=== PATIENT | female | born 1985 | race Caucasian/White ===

== ENCOUNTER 2022-04-10 14:25 | Outpatient (CLI) | payer MEDICARE, MEDICAID ==
[2022-04-10 15:01] LABS: Hemoglobin 14.2 g/dL (12.0-15.5); Mean Corpuscular HGB CONC 34.6 g/dL (32.0-36.0); Mean Corpuscular Hemoglobin 29.5 pg (27.0-33.0); Mean Corpuscular Volume 85.2 fl (81.6-98.3); Mean Platelet Volume 9.6 fl (7.4-10.4); Platelet Count 408 10x3/uL (150-450); RBC Distribution Width 12.3 % (11.5-14.5); Red Blood Cell (RBC) Count 4.81 10x6/uL (3.90-5.03); White Blood Cell (WBC) Count 8.2 10x3/uL (3.5-10.5)
[2022-04-10 15:15] LABS: BHCG - Serum Negative (NEGATIVE); Pregs Control Background? CLEAR/WHITE (CLR/WHITE); Pregs Control Bar Appear? YES (CONTROL BAR)
[2022-04-10 15:21] LABS: Anion Gap 15 mmol/L (10-20); BUN (Urea Nitrogen) 8 mg/dL (7.0-18.7); Calc. Creatinine Clearance 0 mL/min (70-130); Calcium 9.7 mg/dL (7.8-10.44); Carbon Dioxide 26 mmol/L (22-29); Chloride 103 mmol/L (98-107); Estimated GFR 109; Glucose 105 mg/dL (70-105); Potassium 3.8 mmol/L (3.5-5.1); Sodium 140 mmol/L (136-145)
== END 2022-04-10 14:26 | disposition home or self-care (01) ==
LOC: LABBT 14:25
PROVIDERS: ATTEND Orthopaedic Surgery
DX: Z01.812 Encounter for preprocedural laboratory examination (principal); S62.613A Displaced fracture of proximal phalanx of left middle finger, initial encounter for closed fracture
CPT/HCPCS: 80048; 84703; 85027

== ENCOUNTER 2022-04-14 07:15 | Day surgery (SDC) | payer MEDICARE, MEDICAID ==
[2022-04-09 09:48] VITALS: BMI 31.8
[2022-04-14] MEDS ORDERED: Sodium Chloride 0.9% 100 ML ONE (08:57)
[2022-04-14] MEDS ORDERED: CEFAZOLIN 2 GM VIAL ONE (08:57)
[2022-04-14] MEDS ORDERED: PROPOFOL 200 MG/20 ML VIAL ONE (09:08)
[2022-04-14] MEDS ORDERED: Dexamethasone 20 MG/5 ML VIAL ONE (09:08)
[2022-04-14] MEDS ORDERED: Ketorolac Tromethamine 30 MG/ML VIAL ONE (09:08)
[2022-04-14] MEDS ORDERED: Ondansetron PF 4 MG/2 ML Vial ONE (09:08)
[2022-04-14] MEDS ORDERED: Bupivacaine PF 0.5% 30 ML VIAL ONE (09:36)
[2022-04-14] MEDS ORDERED: Fentanyl 100 MCG/2 ML VIAL ONE (10:36)
== END 2022-04-14 11:40 | disposition home or self-care (01) ==
LOC: SDC 07:15
PROVIDERS: ATTEND Orthopaedic Surgery
PROC: 0PSV04Z Reposition Left Finger Phalanx with Internal Fixation Device, Open Approach (ICD-10-PCS; principal; 2022-04-14)
DX: S62.613A Displaced fracture of proximal phalanx of left middle finger, initial encounter for closed fracture (principal); Z79.899 Other long term (current) drug therapy; W19.XXXA Unspecified fall, initial encounter
CPT/HCPCS: C1713; J1100; J1885; J2405; J2704; J3010; J3490; S0020